=== PATIENT | female | born 1955 | race Hispanic/Latino ===

== ENCOUNTER → 2023-12-11 | Outpatient (CLI) | payer MEDICARE ==
[~2023-12-11] MED LIST: AEC81 PO; ATOR10 PO; HYDR-3422 PO; HYDR-4068 PO; HYDR25TA PO; METH25VI67 IJ; OMEP40CA21 PO; VITA400C79 PO; VITAD50000 PO
== END | disposition home or self-care (01) ==
LOC: RAH 10:29
PROVIDERS: ATTEND Physician Assistant
DX: M81.0 Age-related osteoporosis without current pathological fracture (principal)
CPT/HCPCS: 77080